=== PATIENT | male | born 1935 | race Caucasian/White ===

== ENCOUNTER 2017-06-21 09:43 | Emergency (ER) | payer OTHER ==
[~2017-06-21] VITALS: Ht 177.8 cm; Wt 80.3 kg
[2017-06-21 14:01] LABS: HEMATOCRIT 40.7 % (38.0-50.0); HEMOGLOBIN 13.7 G/DL (12.5-16.6); MCH 30.6 PG (29.0-34.0); MCHC 33.7 G/DL (30.0-36.0); MCV 91.1 FL (86-99); PLATELET COUNT 249 K/uL (156-360); RBC DIS.WIDTH-CV 13.1 % (11.8-14.6); RBC DIS.WIDTH-SD 43.7 % (39-53); RED BLOOD COUNT 4.47 M/uL (4.00-5.50); WHITE BLOOD COUNT 8.1 K/uL (4.1-10.2)
[2017-06-21 14:09] LABS: CHLORIDE 105 mEq/L (99-109); POTASSIUM 3.8 mEq/L (3.7-5.4); SODIUM 139 mEq/L (136-147)
[2017-06-21 14:10] LABS: GLUCOSE 185 mg/dL (70-99)
[2017-06-21 14:14] LABS: CREATININE 1.1 mg/dL (0.6-1.3); GFR ESTIMATE (CALCULATED) > 59 mL/min/ (58.99-99999)
[2017-06-21 14:15] LABS: UREA NITROGEN (BUN) 16 mg/dL (9-23)
[2017-06-21] MEDS ORDERED: COLACE100 MG PO (18:58)
[2017-06-21] MEDS ORDERED: VICODIN 5-3001 EACH PO (18:58)
[2017-06-21] MEDS ORDERED: PERCOCET 5/31 TABLET PO (19:00)
[2017-06-21 19:28] VITALS: BP 220/89
== END 2017-06-21 19:28 | disposition home or self-care (01) ==
LOC: EME 09:43
PROVIDERS: Nurse Practitioner Family
DX: M50.30 Other cervical disc degeneration, unspecified cervical region (principal); I10 Essential (primary) hypertension; E78.5 Hyperlipidemia, unspecified; I25.10 Atherosclerotic heart disease of native coronary artery without angina pectoris; I25.2 Old myocardial infarction; Z95.1 Presence of aortocoronary bypass graft; Z95.0 Presence of cardiac pacemaker; F17.200 Nicotine dependence, unspecified, uncomplicated
CPT/HCPCS: 70498; 72125; 80048; 85027; 99281; 99285; J1100; J2270